=== PATIENT | male | born 1980 | race Caucasian/White ===

== ENCOUNTER 2022-01-02 13:08 | Emergency (ER) | payer MEDICAID ==
[~2022-01-02] VITALS: Ht 175.3 cm; Wt 72.6 kg
--- NOTE | 2022-01-02 13:33 | NUR ---
JAMA 81 AND [employer] FOR [employer] WANDERING IN THE STREET PER [employer], HE IS A [place] TRYING TO CONTACT A FAMILY MEMBER. PER [employer] HE WAS RECENTLY AT [facility] AND RAN AWAY. PT IS A&OX2. WARM ABLNKET PROVIDED FOR COMFORT. AWAITING MD ORDERS.
--- NOTE | 2022-01-02 13:51 | NUR ---
LAB AT BEDSIDE
--- NOTE | 2022-01-02 14:09 | NUR ---
ZULEIKA LEONARD (SISTER) [phone] SADA HAMILTON (PASSENGER SCREENER) [phone]
[2022-01-02 14:21] LABS: BASOPHILS # (AUTO) 0.1 K/uL (0.0-0.2); BASOPHILS % (AUTO) 0.7 % (0.0-2.0); EOSINOPHILS % (AUTO) 0.3 % (0.0-6.0); HEMATOCRIT 40 % (39-51); HEMOGLOBIN 13.2 g/dL (13.5-17.5); LYMPHOCYTES # (AUTO) 1.1 K/uL (0.8-4.8); LYMPHOCYTES % (AUTO) 7.3 % (20.0-44.0); MEAN CORPUSCULAR HGB CONC 33 g/dl (31.0-36.0); MEAN CORPUSCULAR VOLUME 89 fL (80-96); MONOCYTES # (AUTO) 1.7 K/uL (0.1-1.30); MONOCYTES % (AUTO) 11.1 % (2.0-12.0); NEUTROPHILS # (AUTO) 12.3 K/uL (1.8-8.9); NEUTROPHILS % (AUTO) 80.6 % (43.0-81.0); PLATELET COUNT (AUTO) 233 K/uL (150-450); RED BLOOD CELL COUNT(AUTO) 4.45 MIL/uL (4.5-6.0); WHITE BLOOD COUNT (AUTO) 15.3 K/uL (4.3-11.0)
[2022-01-02 14:27] LABS: CALCIUM, SERUM 8.4 mg/dL (8.5-10.1); CARBON DIOXIDE 21 mmol/L (21-32); CHLORIDE 100 mmol/L (98-107); CREATININE 1.2 mg/dL (0.6-1.3); GLUCOSE 115 mg/dL (74-106); POTASSIUM 3.2 mmol/L (3.5-5.1); SERUM AMMONIA 27 umol/L (11-32); SODIUM SERUM 136 mmol/L (136-145); UREA NITROGEN, BLOOD 39 mg/dL (7-18)
[2022-01-02 14:41] LABS: ALANINE AMINOTRANSFERASE 50 U/L (12-78); ALBUMIN 3.7 g/dL (3.4-5.0); ALCOHOL, BLOOD < 3 mg/dL (0-0); ALKALINE PHOSPHATASE 99 U/L (46-116); ASPARTATE AMINOTRANSFERASE 60 U/L (15-37); BILIRUBIN,DIRECT 0.2 mg/dL (0.0-0.2); BILIRUBIN,TOTAL 0.8 mg/dL (0.2-1.0); TOTAL PROTEIN, SERUM 7.1 g/dL (6.4-8.2)
[2022-01-02] MEDS ORDERED: IV NS 0.9% 1,000 ML IV ONE (15:00)
[2022-01-02] MEDS ORDERED: POTASSIUM CHLORIDE 20 MEQ TAB.PRT.SR PO ONE (15:00)
[2022-01-02 15:36] LABS: THYROID STIMULATING HORMONE 2.751 uIU/mL (0.358-3.74)
--- NOTE | 2022-01-02 15:55 | NUR ---
IV ESTABLISHED L AC 20G
--- NOTE | 2022-01-02 18:57 | NUR ---
URINE COLLECTED AND SENT
[2022-01-02 19:34] LABS: BILIRUBIN,URINE SMALL (NEGATIVE); COLOR,URINE YELLOW (YELLOW); LEUKOCYTE ESTERASE ,URINE NEGATIVE (NEGATIVE); NITRITE, URINE NEGATIVE (NEGATIVE); PROTEIN,URINE TRACE mg/dl (NEGATIVE); UGLUCOSE NEGATIVE (NEGATIVE)
[2022-01-02 19:44] LABS: MUCUS,URINE Moderate /LPF (None Seen); RBC,URINE 0-2 /HPF (0-2); WBC,URINE RARE /HPF (0-3)
[2022-01-02 19:45] LABS: BACTERIA,URINE None seen /HPF (None Seen)
[2022-01-02] MEDS ORDERED: OLANZAPINE 10 MG VIAL IM ONE (23:59)
[2022-01-03] MEDS ORDERED: OLANZAPINE 10 MG VIAL IM ONE
--- NOTE | 2022-01-03 05:52 | NUR ---
PT IN BED SLEEPING. VSS. RESP EVEN AND NONLABORED. SAFETY MEASURES IN PLACE. 1:1 SITTER AT PT'S BEDSIDE
--- NOTE | 2022-01-03 09:55 | NUR ---
FAXED CLINICALS TO [facility].
[2022-01-04] MEDS ORDERED: OLANZAPINE 5 MG TABLET ONE ×2 (09:27→11:52)
[2022-01-04] MEDS ORDERED: OLANZAPINE 5 MG TABLET PO ONE ×2 (09:30→12:00)
--- NOTE | 2022-01-04 10:10 | NUR ---
PT IS UNDER CONSERVATORSHIP. TRUONG SINGH NUT GRADER AWARE. COPY OF LETTER OF CONSERVATORSHIP IN PATIENTS CHART.
--- NOTE | 2022-01-04 11:39 | NUR ---
Clinical Note Patient was brought in by a [employer] hold on 01/02/22. Today nursing securities supervisor received documentation from conservator's deputy commonwealth's attorney that states they do nit want him released and want placement in an IMD. This clinician called the deputy commonwealth's attorney on the [employer] papers and spoke with his assistant corporate secretary who reports that he was violent at [facility] and taken into police custody. Police brought him to our ED. Tried to reach deputy commonwealth's attorney Tran Lynch ) but left message as per assistant corporate secretary he was not available.Attempting placement in adult unit. Numerous faxes sent. [facility] so this supercedes 0360. Addendum: 01/04/[address] at [address] Rankin will consult on patient.
--- NOTE | 2022-01-04 15:29 | NUR ---
LAWSON faxed clinicals to : [facility] [[address], [place] [address] tel: ; fax:[phone] [facility] TEL: [phone] fax: [phone]
[2022-01-04] MEDS ORDERED: OLANZAPINE 5 MG TABLET PO PRN (18:30)
[2022-01-04 19:30] LABS: BILIRUBIN,TOTAL 0.3 mg/dL (0.2-1.0); CALCIUM, SERUM 8.4 mg/dL (8.5-10.1); CREATININE 0.8 mg/dL (0.6-1.3); TOTAL PROTEIN, SERUM 6.3 g/dL (6.4-8.2)
[2022-01-04 19:51] LABS: BASOPHILS # (AUTO) 0.1 K/uL (0.0-0.2); BASOPHILS % (AUTO) 0.8 % (0.0-2.0); EOSINOPHILS % (AUTO) 3.1 % (0.0-6.0); HEMATOCRIT 39 % (39-51); HEMOGLOBIN 13.1 g/dL (13.5-17.5); LYMPHOCYTES # (AUTO) 1.7 K/uL (0.8-4.8); MEAN CORPUSCULAR HGB CONC 34 g/dl (31.0-36.0); MEAN CORPUSCULAR VOLUME 89 fL (80-96); MONOCYTES # (AUTO) 0.9 K/uL (0.1-1.30); MONOCYTES % (AUTO) 10.1 % (2.0-12.0); NEUTROPHILS # (AUTO) 5.6 K/uL (1.8-8.9); PLATELET COUNT (AUTO) 294 K/uL (150-450); RED BLOOD CELL COUNT(AUTO) 4.39 MIL/uL (4.5-6.0); WHITE BLOOD COUNT (AUTO) 8.4 K/uL (4.3-11.0)
--- NOTE | 2022-01-05 03:42 | NUR ---
PT SLEEPING. TOLERATING R/A WELL WITH NO RESP DISTRESS. SAFETY MEASURES IN PLACE. 1:1 SITTER AT PT'S BEDSIDE.
--- NOTE | 2022-01-05 07:25 | NUR ---
RECEIVED REPORT FROM KENN BHAKTA PT IN BED MELODIE BURT FOR PSCHY EVALUATION
--- NOTE | 2022-01-05 09:17 | NUR ---
[facility]
[2022-01-05] MEDS ORDERED: OLANZAPINE 5 MG TABLET ONE ×3 (09:35→22:03)
[2022-01-05] MEDS: OLANZAPINE 5 MG TABLET PO SCH ×3 (09:39→17:00)
--- NOTE | 2022-01-05 10:36 | NUR ---
FAXED CLINICALS TO [facility] @ [facility] [phone]
--- NOTE | 2022-01-05 11:12 | NUR ---
Placement Notes Patient's status is LPS conservatorship. Hold is redundant in view of this. So [facility] refused to accept patient ( Andre: [phone]). Spoke with Yomaira BHAKTA child care supervisor at [facility] and he asked for clinicals to be faxed to fax ([phone]). Awaiting review. [facility]. Packets faxed to [facility] and numerous other facilities. Will update if acceptance is received.
--- NOTE | 2022-01-05 19:45 | NUR ---
PT SITTING QUIETLY IN BED. VSS
[2022-01-05] MEDS ORDERED: OLANZAPINE 5 MG TABLET PO SCH (22:00)
--- NOTE | 2022-01-06 00:44 | NUR ---
PT SLEEPING, ATTACHED TO MONITOR. VSS
--- NOTE | 2022-01-06 03:19 | NUR ---
PT SITTING QUIETLY IN BED. VSS
--- NOTE | 2022-01-06 05:06 | NUR ---
PT RESTING WITH EYES CLOSED. ATTACHED TO MONITOR. VSS
--- NOTE | 2022-01-06 06:47 | NUR ---
FAXED FACE SHEET, CLINICALS AD HOLD TO [facility] AT [phone] PER JAY'S REQUEST
[2022-01-06] MEDS ORDERED: OLANZAPINE 5 MG TABLET ONE ×2 (09:14→13:43)
--- NOTE | 2022-01-06 09:16 | NUR ---
Clincial Social Work Note Reached conservator's daughter, Yesika, at 1620 yesterday ([phone]) and tried to discuss care of patient. She said her mothr could not speak [place]ian. This health underwriter was trying to establsih income and then she hung up on this health underwriter. Attempted to call her at 1640 and no answer. Tried to reach conservator today at 900 but no answer. They appear to be ignoring calls. Tried to reach the entertainer & comic acting for conservator ([phone]) multiple times on 01/05/2022. No answer and left numerous messages and advised entertainer & comic, Tran Gambino ([phone]) her that conservator needs to be engaged in treatment with this hospital and her ignoring calls could constitute abandonment by conservator. Spoke with Officer Alcides darling who said that this ED has stabilized patient medically and hold is up and that conservator should be collaborating with plan of care. He advsied that patient was brought by fire dept for possible heat stroke after they wrote the original hold. Documentation from nursing indicates patient was initially at [facility] and went missing. This health underwriter called Andre at [facility] ( [phone])to discuss this now. Packets faxed to [facility] ([phone]) early this am. No beds currently ([phone]). They will call if beds become available. No accepting inpatient facility currently.
--- NOTE | 2022-01-06 09:51 | NUR ---
CONSERVATOR "SHEN" WILL YOUTH CAREER SPECIALIST THE PATIENT AT NOON ACCORDING TO TRUONG SINGH. CONTACT NUMBER [phone]
[2022-01-06] MEDS ORDERED: OLAN5TAB3 PO (10:38)
[2022-01-06] MEDS ORDERED: OLAN10TA3 PO (10:38)
--- NOTE | 2022-01-06 11:12 | NUR ---
NEW ETA FOR STOPBOARD ASSEMBLER 0600 01/07/22
--- NOTE | 2022-01-06 11:57 | NUR ---
[facility] psychiatric hospital referrals and the following mental health resources in the patient's chart for family: Counseling--[facility] [address], [place] [address] (Specializes in in-depth psychotherapy for emotional distress: anxiety, depression, interpersonal conflicts, life transitions, childhood abuse) [facility] [address] [place] [address] (Assist with solving problem marital difficulties, separation & divorce, aging parents, & grief, chronic & terminal illness) [facility] [address] [place] [address] (Deal with loss & grief, anxiety, marital difficulties) Homebound/[facility]ental Health Services [address] [facility] [address] [place] [address] (Provide in-home mental services to people who are incapable of leaving their homes) [facility] [address] [place] [address] [facility] [address] [place], [place] [id number] PSYCHIATRIC OUTPATIENT SERVICES [facility] Partial Hospitalization and Intensive Outpatient Program (Managed Care and [place] Only) [address] [facility] [address]; [phone] [facility] Partial Hospitalization and Outpatient Program [address] [facility] [address] [place] [address]; [phone] [facility] [address] [facility] [address] [place], [place] [phone] [facility] Partial Hospitalization and Outpatient [place] [place], [place] ; [phone] ;[phone] [facility] [address] [place] [address] Mental Health Services Arlene Gaytan [address] [place] [address] Services: Outpatient therapy for children, teens, young adults, adults, older adults, and families; Psychiatric services, medication support [place] Crisis and Hotline Telephone Numbers: 24-Hour service unless stated [place] Mental Health/Crisis Line........368.341.1663 Suicide Prevention Center (24 Hours).......[phone] Suicide Prevention Crisis Center.......278.239.4761 (24 Hours) Alcoholics Anonymous (24 Hours)..........965.354.4274 National Crisis Hotlines: Alcohol and Drug Helpline - Provides referrals to local facilities where adolescents and adults can seek help. Brief intervention. [facility] Helpline National [place] [facility] 2-421-472-GPQQ National Youth Crisis Hotline [place] [facility] Provides free information on specific disorders, referral directory to mental health providers, national directory of local mental health associations (M-F, 9-5 EST) National [place] of Mental Health Information Line: Provide sinformation and literature on mental illness by disorder-for professionals and general public.
--- NOTE | 2022-01-06 13:44 | NUR ---
Discharge Plan Spoke with Freya, , with Yesika schroeder, patient's mother present ) over the telephone. They want patient to go back to [facility] where he ws previously. They agreed to pick patient up on 01/07/22 at [address] [facility], [address] [address] and request admission as [facility] referral. Patient is much improved on Zyprexa prescribed by Dr Rankin. Dr Rankin saw patient again today. Patient will be given Zyprexa prescriptions upon discharge. Discharge plan was discussed with Dr Rankin. Educated sister and elda re the need for medicaion compliance. Plan : Gener legal specialist was notified re grape picker at 0600 on MondayJanuary 07. Sister will come with her brother to pick patient up from ED at 0600.
[2022-01-06] MEDS: OLANZAPINE 5 MG TABLET PO SCH (13:46)
--- NOTE | 2022-01-06 13:56 | NUR ---
[phone][facility]
[2022-01-06] MEDS ORDERED: OLANZAPINE 5 MG TABLET PO SCH (22:00)
--- NOTE | 2022-01-07 00:59 | NUR ---
rosaura cisneros called to inform that pt's conservator's sister sylvia will come to warehouse order picker the pt. warehouse order picker is still scheduled at 0600
[2022-01-07] MEDS ORDERED: OLANZAPINE 5 MG TABLET ONE (02:01)
--- NOTE | 2022-01-07 06:44 | NUR ---
PT'S CONSERVATOR'S SISTER, ZULEIKA, PICKED UP THE PT. DISCHARGED PAPERWORK GIVEN WELL PRESCRIPTION. PT IS MEDICALLY AND PSYCHIATRICALLY CLEARED. AMBULATORY ON STEADY GAIT. LEFT WITHOUT SIGNING.
[2022-01-07 07:04] VITALS: BP 126/71
[2022-01-07] MEDS ORDERED: OLANZAPINE 5 MG TABLET PO SCH (08:00)
--- NOTE | 2022-01-07 09:58 | NUR ---
Discharge Note At around 0630 today, Albert BHAKTA notified this gag writer that the sister, Freya was in ED but refusing to take Siva. She was askinf for an ambulance to [facility]. This gag writer spoke with her and reiterated what had been discussed yesterday and previously. We could not transfer patient to [facility] without their acceptance and they do not accept our patients. Patient was psychiatrically and medically clear. Conservator and sister want [place] [facility] for correction care and so were advised that they could take him to [facility] and they can hopefully admit patient in order to place him in an IMD. Only [facility] facilities can do IMD placement per Officer Alcides at [employer] [facility].. Sister took patient with conservator's agreement and said " okay, we will go the legal way".
== END 2022-01-07 07:04 | disposition home or self-care (01) ==
LOC: ER 13:13
DX: R45.851 Suicidal ideations (principal); F20.9 Schizophrenia, unspecified; D72.829 Elevated white blood cell count, unspecified; N28.9 Disorder of kidney and ureter, unspecified; D64.9 Anemia, unspecified; E87.6 Hypokalemia; Z20.822 Contact with and (suspected) exposure to COVID-19; R10.10 Upper abdominal pain, unspecified; Z78.1 Physical restraint status; F12.10 Cannabis abuse, uncomplicated; Z59.01 Sheltered homelessness
CPT/HCPCS: 99285; 96372; 96360; 76705; 82140; 85025 ×2; 80076; 81001; 36415 ×2; 84443; 80053; 87426; 80320; 80307; 80048; J7030; J3490; C9803; G0480